=== PATIENT | female | born 1945 | race Caucasian/White ===

== ENCOUNTER 2018-07-11 11:05 | Day surgery (SDC) | payer OTHER, SELFPAY ==
[2018-07-11 12:05] VITALS: BP 141/60; PULSE 52; RESP 16; TEMP 36.6; O2SAT 99; BMI 28.8
[2018-07-11] MEDS: PROPARACAINE 0.5% OPHTH SOL 2 DROPS EYE-OP (12:09)
[2018-07-11] MEDS: CATARACT EYE COMPOUND (10 DROPS/SYRINGE) 3 DROPS EYE-OP (12:10)
--- NOTE | 2018-07-11 12:46 | PM.PREOP ---
Pre-operative Note Interval Note History & Physical reviewed/Exam performed by Physician: No Changes to H&P: No
--- NOTE | 2018-07-11 12:46 | PM.OP.1 ---
Operative Date/Time/Diagnoses Pre-op diagnosis: Nuclear cataract right eye Procedure & Clinicians Procedure: Cataract Surgery Same procedure as scheduled: Yes Surgeon: Al Mckenzie Anesthesia Type: MAC +/- and Sedation Operative Notes Procedure in detail: Patient brought to the operating suite. Tetracaine drops placed in the right eye. Patient was prepped and draped in sterile manner. Wire lid speculum was placed in the eye. Betadine drops were placed on the eye. This was irrigated. Lidocaine jelly was placed on the eye. A paracentesis port was created with a side-port blade. 0.1 mL 1% preservative free lidocaine was injected into the anterior chamber. The anterior chamber was deepened with viscoelastic. 2.6 mm keratome was used to create a temporal clear corneal incision. Cystotome and Utrata forceps were used to create continuous tear capsulorrhexis. Balanced salt solution was used to hydro dissect the nucleus. The phacoemulsification handpiece was inserted and the nucleus was removed using the stop and chop technique. The irrigation aspiration handpiece was inserted and the remaining cortex was removed. Anterior chamber was deepened with viscoelastic. An Babin ZCB00 intraocular lens with a power of 24.5 was injected into the capsular bag. Irrigation aspiration handpiece was inserted and the remaining viscoelastic was removed. Incision was hydrated with balanced salt solution and found to be leak free with pressure with Weck-Minerva sponges. 0.1 mL Vigamox injected anterior chamber. 0.3 mL Kenalog 10 mg was injected subconjunctivally. Lid speculum was removed. The patient left the operating room in excellent condition. Complications: none Condition: stable Disposition: same day surgery
[2018-07-11] MEDS: MOXIFLOXACIN OPHTH DROPS 3 ML BOTTLE 2 DROPS INJ (12:57)
[2018-07-11] MEDS: TRIAMCINOLONE 50 MG/5 ML VIAL INJ (12:57)
[2018-07-11] MEDS: PHENYLEPHRINE/LIDOCAINE VIAL (OR) 0.2 ML EYE-OP (12:57)
[2018-07-11] MEDS: TETRACAINE 0.5% OPHTH DROPS 4 ML 2 DROPS EYE-OP (12:58)
[2018-07-11] MEDS: LIDOCAINE JELLY 2% 5 ML 1 APPLIC TOP (12:58)
[2018-07-11] MEDS: CHONDROIDTIN/SOD HYALURONATE 1.05 ML SYRINGE INTRAOCULA (12:58)
[2018-07-11] MEDS: BALANCED SALT IRRIG SOLN NO.2 500 ML, EPINEPHrine 1 MG IRR (12:59)
[2018-07-11 13:15] VITALS: BP 132/63; PULSE 50; RESP 16; TEMP 36.9; O2SAT 97
== END 2018-07-11 13:22 ==
LOC: OR 11:06
PROVIDERS: Family Provider Family Medicine Geriatric Medicine; Visit Provider Ophthalmology
DX: H25.11 Age-related nuclear cataract, right eye (principal); E78.5 Hyperlipidemia, unspecified; I10 Essential (primary) hypertension
CPT/HCPCS: J0171; J2250; J3010; J3301

== ENCOUNTER 2018-07-25 09:53 | Day surgery (SDC) | payer OTHER, SELFPAY ==
[2018-07-25 10:21] VITALS: BP 167/65; PULSE 57; RESP 18; TEMP 36.6; O2SAT 98; BMI 27.9
[2018-07-25] MEDS: PROPARACAINE 0.5% OPHTH SOL 2 DROPS EYE-OP (10:25)
[2018-07-25] MEDS: CATARACT EYE COMPOUND (10 DROPS/SYRINGE) 3 DROPS EYE-OP (10:30)
--- NOTE | 2018-07-25 11:19 | PM.PREOP ---
Pre-operative Note Interval Note History & Physical reviewed/Exam performed by Physician: No Changes to H&P: No
--- NOTE | 2018-07-25 11:20 | PM.OP.1 ---
Operative Date/Time/Diagnoses Pre-op diagnosis: Nuclear Cataract Left eye Post-op diagnosis: same Procedure & Clinicians Surgeon: Al Mckenzie Anesthesia Type: MAC +/- and Sedation Operative Notes Procedure in detail: Patient brought to the operating suite. Tetracaine drops placed in the left eye. Patient was prepped and draped in sterile manner. Wire lid speculum was placed in the eye. Betadine drops were placed on the eye. This was irrigated. Lidocaine jelly was placed on the eye. A paracentesis port was created with a side-port blade. 0.1 mL 1% preservative free lidocaine was injected into the anterior chamber. The anterior chamber was deepened with viscoelastic. 2.6 mm keratome was used to create a temporal clear corneal incision. Cystotome and Utrata forceps were used to create continuous tear capsulorrhexis. Balanced salt solution was used to hydro dissect the nucleus. The phacoemulsification handpiece was inserted and the nucleus was removed using the stop and chop technique. The irrigation aspiration handpiece was inserted and the remaining cortex was removed. Anterior chamber was deepened with viscoelastic. An Babin ZCB00 intraocular lens with a power of 24.0 was injected into the capsular bag. Irrigation aspiration handpiece was inserted and the remaining viscoelastic was removed. Incision was hydrated with balanced salt solution and found to be leak free with pressure with Weck-Minerva sponges. 0.1 mL Vigamox injected anterior chamber. 0.3 mL Kenalog 10 mg was injected subconjunctivally. Lid speculum was removed. The patient left the operating room in excellent condition. Complications: none Condition: stable Disposition: same day surgery
[2018-07-25] MEDS: LIDOCAINE JELLY 2% 5 ML 1 APPLIC TOP (11:37)
[2018-07-25] MEDS: CHONDROIDTIN/SOD HYALURONATE 1.05 ML SYRINGE INTRAOCULA (11:37)
[2018-07-25] MEDS: TETRACAINE 0.5% OPHTH DROPS 4 ML 2 DROPS EYE-OP (11:38)
[2018-07-25] MEDS: TRIAMCINOLONE 50 MG/5 ML VIAL INJ (11:38)
[2018-07-25] MEDS: PHENYLEPHRINE/LIDOCAINE VIAL (OR) 0.2 ML EYE-OP (11:38)
[2018-07-25] MEDS: MOXIFLOXACIN OPHTH DROPS 3 ML BOTTLE 2 DROPS INJ (11:38)
[2018-07-25] MEDS: BALANCED SALT IRRIG SOLN NO.2 500 ML, EPINEPHrine 1 MG IRR (11:39)
[2018-07-25 11:51] VITALS: BP 86/50; PULSE 41; RESP 16; TEMP 36.1; O2SAT 96
[2018-07-25 11:55] VITALS: BP 119/65; PULSE 46; RESP 16; O2SAT 98
--- NOTE | 2018-07-25 11:57 | SUR.PHASEII ---
pt arrived from OR and she was sleeping off and on. Her blood pressure was 89/50 when she arrived and rechecked blood pressure and pt is awake and her blood pressure went up. she says she is ready to go home. I am going to take 2 more blood pressure. pt's current blood pressure 119/65. She also drank cranberry juice and states she is fine.
[2018-07-25 12:00] VITALS: BP 113/72; PULSE 45; RESP 16; TEMP 36.1; O2SAT 98
[2018-07-25 12:10] VITALS: BP 117/58; PULSE 45; RESP 16; O2SAT 98
== END 2018-07-25 12:15 ==
LOC: OR 09:55
PROVIDERS: Family Provider Family Medicine Geriatric Medicine; Visit Provider Ophthalmology
DX: H25.12 Age-related nuclear cataract, left eye (principal); I10 Essential (primary) hypertension; E78.5 Hyperlipidemia, unspecified
CPT/HCPCS: J0171; J2250; J3010; J3301